=== PATIENT | male | born 1980 | race Hispanic/Latino ===

== ENCOUNTER → 2021-02-11 | Emergency (ER) | payer MEDICARE, OTHER ==
[~2021-02-11] VITALS: Ht 172.7 cm; Wt 96.2 kg
[~2021-02-11] MED LIST: CIPRO500 MG PO; LEVOFLOXACIN750 MG PO; PREDNISONE20 MG PO; VENTOLIN HFA18 GM INH
== END ==
LOC: FSED 17:13
DX: J06.9 Acute upper respiratory infection, unspecified (principal)
CPT/HCPCS: 71046; 83518; 87400; 99283

== ENCOUNTER 2023-01-06 03:35 | Emergency (ER) | payer OTHER ==
[~2023-01-06] VITALS: Ht 172.7 cm; Wt 95.3 kg
[2023-01-06] MEDS ORDERED: ONDANSETRON HCL 4 MG ORAL DISINTEGRATING TAB PO STA (03:37)
[2023-01-06 03:45] LABS: CLARITY,URINE CLOUDY (CLEAR); COLOR,URINE AMBER (YELLOW); LEUKOCYTE ESTERASE ,URINE NEGATIVE (NEGATIVE); NITRITE,URINE NEGATIVE (NEGATIVE); PROTEIN,URINE DIPSTICK >=300 (NEGATIVE)
[2023-01-06] MEDS ORDERED: KETOROLAC TROMETHAMINE 60 MG/2 ML VIAL IM ONE (03:45)
[2023-01-06 03:46] LABS: KETONES,URINE TRACE (NEGATIVE); URINE UROBILINOGEN 1 mg/dL (0.2 - 1)
[2023-01-06] MEDS ORDERED: ONDANSETRON HCL 4 MG ORAL DISINTEGRATING TAB ONE (03:47)
[2023-01-06 03:51] LABS: BACTERIA,URINE FEW /HPF; EPITHELIAL CELLS,URINE MODERATE /LPF; RBC,URINE >50 /HPF (0-5)
[2023-01-06 03:52] LABS: MUCUS,URINE MODERATE (RARE)
[2023-01-06] MEDS ORDERED: ONDANSETRON ODT4 MG PO (05:58)
[2023-01-06] MEDS ORDERED: CIPRO500 MG PO (05:58)
[2023-01-06] MEDS ORDERED: FLOMAX0.4 MG PO (05:58)
[2023-01-06] MEDS ORDERED: KETOROLAC TROME10 MG PO (05:58)
[2023-01-06 06:18] VITALS: BP 114/70; O2SAT 97
[2023-01-07] MEDS ORDERED: ULTRAM 50MG50 MG PO (02:14)
== END 2023-01-06 06:19 | disposition home or self-care (01) ==
LOC: ER 03:38
DX: R10.31 Right lower quadrant pain (principal); N13.2 Hydronephrosis with renal and ureteral calculous obstruction; R11.2 Nausea with vomiting, unspecified
CPT/HCPCS: 74176; 81001; 99283; J1885; Q0162

== ENCOUNTER 2023-01-07 00:09 | Emergency (ER) | payer OTHER ==
[~2023-01-07] VITALS: Ht 172.7 cm; Wt 95.3 kg
[~2023-01-07 00:09] MED LIST changes: +FLOMAX0.4 MG PO; +KETOROLAC TROME10 MG PO; +ONDANSETRON ODT4 MG PO
[2023-01-07] MEDS ORDERED: KETOROLAC TROMETHAMINE 30 MG/ML VIAL IV STA (00:31)
[2023-01-07] MEDS ORDERED: ONDANSETRON HCL INJ 2MG/ML 2ML 2 MG/ML VIAL IV STA (00:31)
[2023-01-07 00:38] LABS: CLARITY,URINE SL CLOUDY (CLEAR); COLOR,URINE AMBER (YELLOW); KETONES,URINE TRACE (NEGATIVE); LEUKOCYTE ESTERASE ,URINE NEGATIVE (NEGATIVE); NITRITE,URINE NEGATIVE (NEGATIVE); PROTEIN,URINE DIPSTICK 1+ (NEGATIVE)
[2023-01-07 00:39] LABS: BACTERIA,URINE FEW /HPF; BASOPHILS % 0.2 % (0.0-1.0); EOSINOPHILS # (AUTO) 0.1 (0.0-0.4); EOSINOPHILS % 0.6 % (0.0-6.0); EPITHELIAL CELLS,URINE FEW /LPF; HEMATOCRIT 41.7 % (38.2-49.6); HEMOGLOBIN 14.1 g/dL (14.0-18.0); LYMPHOCYTES # (AUTO) 1.4 (1.0-3.2); LYMPHOCYTES % 17.5 % (18.0-39.1); MEAN CORPUSCULAR HEMOGLOBIN 28.1 pg (28-32); MEAN CORPUSCULAR HGB CONC 33.8 g/dL (31-35); MEAN CORPUSCULAR VOLUME 83.1 fL (81-99); MONOCYTES # (AUTO) 0.5 (0.2-0.8); MONOCYTES % 5.8 % (4.4-11.3); MUCUS,URINE MODERATE (RARE); NEUTROPHILS # (AUTO) 6.2 (2.1-6.9); NEUTROPHILS % 75.7 % (38.7-80.0); PLATELET COUNT 277 x10e3/uL (140-360); RBC,URINE 21-50 /HPF (0-5); RED BLOOD COUNT 5.02 x10e6/uL (4.3-5.7); RED CELL DISTRIBUTION WIDTH 13.1 % (11.7-14.4); URINE UROBILINOGEN 0.2 mg/dL (0.2 - 1); WBC,URINE (MAN) 0-5 /HPF (0-5)
[2023-01-07 00:43] LABS: INR 0.95; PROTHROMBIN TIME 13.2 seconds (11.9-14.5)
[2023-01-07 00:44] LABS: PARTIAL THROMBOPLASTIN TIME 26.2 seconds (23.8-35.5)
[2023-01-07] MEDS ORDERED: SODIUM CHLORIDE 0.9% 1000ML 1,000 ML IV SCH (00:45)
[2023-01-07] MEDS ORDERED: SODIUM CHLORIDE FLUSH 10 ML SYR IV PRN (00:45)
[2023-01-07 00:58] LABS: ALBUMIN 4.1 g/dL (3.5-5.0); ALBUMIN/GLOBULIN RATIO 1.3 (0.8-2.0); ANION GAP 13.7 mmol/L (8-16); CALCIUM 9.3 mg/dL (8.4-10.2); CREATININE, SERUM 1.67 mg/dL (0.72-1.25); POTASSIUM 3.7 mmol/L (3.5-5.1)
[2023-01-07] MEDS ORDERED: Morphine 4mg INJECTION 4 MG/ML INJ IV ONE (01:30)
[2023-01-07] MEDS ORDERED: ULTRAM 50MG50 MG PO (02:14)
[2023-01-07 02:27] VITALS: BP 118/75; PULSE 62; RESP 16; TEMP 98.7; O2SAT 100
== END 2023-01-07 01:55 | disposition home or self-care (01) ==
LOC: ER 00:13
DX: R10.31 Right lower quadrant pain (principal); N13.2 Hydronephrosis with renal and ureteral calculous obstruction; N17.9 Acute kidney failure, unspecified; R31.9 Hematuria, unspecified
CPT/HCPCS: 36415; 80053; 81001; 83690; 85025; 85610; 85730; 99283; J1885; J2270; J2405; J7030